=== PATIENT | male | born 1965 | race African-American/Black ===

== ENCOUNTER 2019-04-02 09:46 | Emergency (ER) | payer SELFPAY ==
[~2019-04-02] VITALS: Ht 170.2 cm; Wt 82.7 kg
[2019-04-02] MEDS ORDERED: METFORMIN500 MG PO (10:04)
[2019-04-02] MEDS ORDERED: LISINOP/HCTZ1 TA2 PO (10:05)
[2019-04-02] MEDS ORDERED: HYDROCHLOROTH12.5 MG PO (11:17)
[2019-04-02] MEDS ORDERED: LISINOPRIL20 MG PO (11:17)
[2019-04-02] MEDS ORDERED: METFORMIN500 M1 PO (11:17)
[2019-04-02 11:31] VITALS: BP 171/83
== END 2019-04-02 11:34 | disposition home or self-care (01) | DRG 305 ==
LOC: ED 09:46
DX: I10 Essential (primary) hypertension (principal); E11.9 Type 2 diabetes mellitus without complications; T46.5X6A Underdosing of other antihypertensive drugs, initial encounter; F17.210 Nicotine dependence, cigarettes, uncomplicated; Z91.128 Patient's intentional underdosing of medication regimen for other reason; Z79.84 Long term (current) use of oral hypoglycemic drugs

== ENCOUNTER 2019-05-29 17:12 | Emergency (ER) | payer SELFPAY ==
[~2019-05-29 17:12] MED LIST: HYDROCHLOROTH12.5 MG PO; LISINOP/HCTZ1 TA2 PO; LISINOPRIL20 MG PO; METFORMIN500 M1 PO; METFORMIN500 MG PO
[2019-05-29] MEDS ORDERED: LISINOP/HCTZ1 TA2 PO (17:35)
[2019-05-29] MEDS ORDERED: METFORMIN500 M1 PO (17:35)
[2019-05-29 17:55] VITALS: BP 159/99
== END 2019-05-29 17:55 | disposition home or self-care (01) | DRG 951 ==
LOC: ED 17:12
DX: Z76.0 Encounter for issue of repeat prescription (principal); I10 Essential (primary) hypertension; E11.9 Type 2 diabetes mellitus without complications; F17.210 Nicotine dependence, cigarettes, uncomplicated; Z79.84 Long term (current) use of oral hypoglycemic drugs; Z91.138 Patient's unintentional underdosing of medication regimen for other reason